=== PATIENT | female | born 1950 | race Caucasian/White ===

== ENCOUNTER 2024-07-30 19:32 | Inpatient (IN) | payer MEDICARE ==
[2024-07-30 20:15] LABS: INR-International Normal Ratio 0.9; PTT 27.1 sec (22.0-33.0); Prothrombin Time 10.1 sec (9.5-12.1)
[2024-07-30 20:18] LABS: ALT (SGPT) 40 U/L (8-55); AST (SGOT) 16 U/L (5-34); Alkaline Phosphatase 79 U/L (40-110); Anion Gap 14 mmol/L (10-20); BUN (Urea Nitrogen) 22 mg/dL (9.8-20.1); Bilirubin, Total 0.4 mg/dL (0.2-1.2); Calc. Creatinine Clearance 0 mL/min (70-130); Calcium 9.8 mg/dL (7.8-10.44); Carbon Dioxide 25 mmol/L (23-31); Chloride 103 mmol/L (98-107); Estimated GFR 69; Globulin 2.9 g/dL (2.4-3.5); Glucose 252 mg/dL (83-110); Potassium 4.1 mmol/L (3.5-5.1); Protein, Total 6.9 g/dL (5.8-8.1); Sodium 138 mmol/L (136-145)
[2024-07-30] MEDS ORDERED: Ondansetron PF 4 MG/2 ML Vial ONE (20:19)
[2024-07-30 20:20] LABS: #Basophils 0.07 10x3/uL (0.0-0.2); #Eosinphils 0.14 10x3/uL (0.0-0.5); #Monocytes 0.66 10x3/uL (0.0-1.1); #Neutrophils 7.08 10x3/uL (1.5-8.4); %Basophils 0.7 % (0.0-2.0); %Eosinophils 1.3 % (0.0-6.0); %Lymphocytes 24.2 % (18.0-47.0); %Monocytes 6.3 % (0.0-10.0); %Neutrophils 67.3 % (40.0-75.0); Hematocrit 41.3 % (34.9-44.5); Hemoglobin 14.7 g/dL (12.0-15.5); Mean Corpuscular HGB CONC 35.6 g/dL (32.0-36.0); Mean Corpuscular Volume 87.1 fL (81.6-98.3); Mean Platelet Volume 10.4 fL (7.4-10.4); Platelet Count 203 10x3/uL (150-450); RBC Distribution Width 12.3 % (11.5-14.5); Red Blood Cell (RBC) Count 4.74 10x6/uL (3.90-5.03); White Blood Cell (WBC) Count 10.5 10x3/uL (3.5-10.5)
[2024-07-30 20:24] LABS: Troponin I 0.176 ng/mL (< 0.028)
[2024-07-30] MEDS ORDERED: Aspirin Chewable 81 MG TAB ONE (20:56)
[2024-07-30] MEDS ORDERED: Dextrose 50% Abboject 50 ML SYRINGE SLOW IVP PRN (21:24)
[2024-07-30] MEDS ORDERED: Dextrose 5% in Water 1,000 ML IV PRN (21:24)
[2024-07-30] MEDS ORDERED: traMADol HCl 50 MG TAB PO PRN (21:24)
[2024-07-30] MEDS ORDERED: Ondansetron PF 4 MG/2 ML Vial IVP PRN (21:24)
[2024-07-30] MEDS ORDERED: Senokot S 8.6-50 MG TAB PO PRN (21:24)
[2024-07-30] MEDS ORDERED: Calcium Carbonate 500 MG ChewTAB PO PRN (21:24)
[2024-07-30] MEDS ORDERED: Zolpidem Tartrate 5 MG TAB PO PRN (21:24)
[2024-07-30] MEDS ORDERED: Guaifenesin DM 100-10/5 ML UDCUP PO PRN (21:24)
[2024-07-30] MEDS ORDERED: Glucagon 1 MG/ML KIT IM PRN (21:24)
[2024-07-30] MEDS ORDERED: Oxymetazoline HCl 0.05% ( 15 ML ) NASAL PRN (21:28)
[2024-07-30] MEDS: Lantus 1000 UNITS/10 ML VIAL SC SCH (22:40)
[2024-07-31 04:06] VITALS: BMI 28.3
[2024-07-31 05:09] LABS: Anion Gap 14 mmol/L (10-20); BUN (Urea Nitrogen) 19 mg/dL (9.8-20.1); Calc. Creatinine Clearance 77 mL/min (70-130); Calcium 9.3 mg/dL (7.8-10.44); Carbon Dioxide 24 mmol/L (23-31); Chloride 106 mmol/L (98-107); Estimated GFR 87; Glucose 152 mg/dL (83-110); Potassium 3.8 mmol/L (3.5-5.1); Sodium 140 mmol/L (136-145)
[2024-07-31 05:19] LABS: Troponin I 0.179 ng/mL (< 0.028)
[2024-07-31 06:37] LABS: Cardiac Risk 5.6 (Less than 4.5); Cholesterol 178 mg/dl (< 200 Desired); HDL Cholesterol 32 mg/dL (>60 Neg Risk); LDL Cholesterol, Calculated 84 mg/dL; Triglycerides 309 mg/dL (Less than 150)
[2024-07-31] MEDS ORDERED: Aspirin Chewable 81 MG TAB ONE (08:58)
[2024-07-31] MEDS ORDERED: Pantoprazole DR 40 MG TAB ONE (08:58)
[2024-07-31] MEDS ORDERED: Clopidogrel Bisulfate 75 MG TAB ONE (08:58)
[2024-07-31] MEDS ORDERED: Enoxaparin 40 MG (0.4 mL) SYRINGE SC SCH (09:00)
[2024-07-31] MEDS: Clopidogrel Bisulfate 75 MG TAB PO SCH (09:09)
[2024-07-31] MEDS: Aspirin 81 mg Enteric Coated Tablet PO SCH (09:09)
[2024-07-31] MEDS: Pantoprazole DR 40 MG TAB PO SCH (09:09)
[2024-07-31] MEDS: Lantus 1000 UNITS/10 ML VIAL SC SCH (09:47)
[2024-07-31] MEDS: Acetaminophen 325 MG TAB PO PRN (12:13)
[2024-07-31] MEDS: hydrALAZINE 20 MG/ML VIAL SLOW IVP PRN (13:24)
[2024-07-31 13:39] LABS: Hemoglobin A1c 8.6 % (4.0-6.0)
[2024-07-31 15:12] LABS: #Basophils 0.05 10x3/uL (0.0-0.2); #Eosinphils 0.14 10x3/uL (0.0-0.5); #Monocytes 0.63 10x3/uL (0.0-1.1); #Neutrophils 8.55 10x3/uL (1.5-8.4); %Basophils 0.4 % (0.0-2.0); %Eosinophils 1.2 % (0.0-6.0); %Lymphocytes 19.5 % (18.0-47.0); %Monocytes 5.4 % (0.0-10.0); %Neutrophils 73.2 % (40.0-75.0); Hematocrit 43.3 % (34.9-44.5); Hemoglobin 14.9 g/dL (12.0-15.5); Mean Corpuscular HGB CONC 34.4 g/dL (32.0-36.0); Mean Corpuscular Hemoglobin 30.3 pg (27.0-33.0); Mean Corpuscular Volume 88.2 fL (81.6-98.3); Mean Platelet Volume 10.2 fL (7.4-10.4); Platelet Count 200 10x3/uL (150-450); RBC Distribution Width 12.2 % (11.5-14.5); Red Blood Cell (RBC) Count 4.91 10x6/uL (3.90-5.03); White Blood Cell (WBC) Count 11.7 10x3/uL (3.5-10.5)
[2024-07-31 15:29] LABS: INR-International Normal Ratio 0.9; PTT 26.3 sec (22.0-33.0); Prothrombin Time 10.3 sec (9.5-12.1)
[2024-07-31 15:30] LABS: ALT (SGPT) 29 U/L (8-55); AST (SGOT) 16 U/L (5-34); Albumin 3.6 g/dL (3.4-4.8); Alkaline Phosphatase 77 U/L (40-110); Anion Gap 13 mmol/L (10-20); BUN (Urea Nitrogen) 19 mg/dL (9.8-20.1); Bilirubin, Total 0.4 mg/dL (0.2-1.2); CK (CPK) 84 U/L (29-168); Calc. Creatinine Clearance 59 mL/min (70-130); Calcium 9.4 mg/dL (7.8-10.44); Carbon Dioxide 23 mmol/L (23-31); Chloride 104 mmol/L (98-107); Estimated GFR 63; Globulin 2.9 g/dL (2.4-3.5); Glucose 238 mg/dL (83-110); Potassium 4.2 mmol/L (3.5-5.1); Protein, Total 6.5 g/dL (5.8-8.1); Sodium 136 mmol/L (136-145)
[2024-07-31 15:34] LABS: Troponin I 0.136 ng/mL (< 0.028)
[2024-07-31] MEDS ORDERED: Lorazepam 2 MG/ML VIAL SLOW IVP PRN (18:15)
[2024-07-31] MEDS: Atenolol 25 MG TAB PO SCH ×2 (18:26→22:11)
[2024-07-31] MEDS: levETIRAcetam 500 MG (5 mL) VIAL SLOW IVP SCH (18:26)
[2024-07-31] MEDS: Rosuvastatin 20 MG TAB PO SCH (20:42)
[2024-07-31] MEDS: levETIRAcetam 500 MG TAB PO SCH (20:43)
[2024-07-31] MEDS: Enoxaparin 40 MG (0.4 mL) SYRINGE SC SCH (20:46)
[2024-07-31] MEDS: Insulin Lispro 100 UNIT/ML 10 ML VIAL SC PRN (20:48)
[2024-07-31] MEDS ORDERED: levETIRAcetam in NS 1,000 MG in Premix 1 BAG IVPB SCH (21:00)
[2024-07-31] MEDS ORDERED: Atenolol 50 MG TAB PO SCH (21:00)
[2024-08-01] MEDS: Sodium Chloride 0.65% Nasal 44 ML BOT EA NARE PRN (11:09)
[2024-08-01 16:22] VITALS: BP 148/93; TEMP 99.1
== END 2024-08-01 19:52 | disposition still patient (30) | DRG 66 ==
LOC: CSHERS 19:32 → CSHERHOLD 21:30 → CSHTELE 07-31 09:21 → OBSVTOIN 07-31 10:20 → CSHTELE 07-31 15:08
PROVIDERS: ADMIT Student in an Organized Health Care Education/Training Program; ATTEND Nurse Practitioner Family
DX: I63.532 Cerebral infarction due to unspecified occlusion or stenosis of left posterior cerebral artery (principal); I10 Essential (primary) hypertension; E11.40 Type 2 diabetes mellitus with diabetic neuropathy, unspecified; Z79.4 Long term (current) use of insulin; Z79.899 Other long term (current) drug therapy; Z90.49 Acquired absence of other specified parts of digestive tract; Z98.51 Tubal ligation status; Z90.89 Acquired absence of other organs; H53.47 Heteronymous bilateral field defects; Z79.82 Long term (current) use of aspirin; Z98.890 Other specified postprocedural states
CPT/HCPCS: 0042T; 36415; 36416; 70450; 70551; 71045; 80048; 80053; 80061; 82550; 83036; 83605; 84443; 84484; 85025; 85610; 85730; 93005; 93306; 96374; G0378; J0360; J1650; J1815; J1953; J2405